=== PATIENT | female | born 1935 | race Caucasian/White ===

== ENCOUNTER 2022-12-20 13:35 | Emergency (ER) | payer OTHER ==
[2022-12-20 14:50] LABS: Absolute Lymphocytes (CBC) 1.1 K/uL (0.7-4.9); Hematocrit 40.6 % (36.0-45.0); Lymphocytes % 7.3 % (15.3-44.8); MCV 82.9 fL (80-100); MPV 7.1 fL (7.6-11.3)
[2022-12-20 15:32] LABS: Potassium 4.2 mmol/L (3.5-5.1)
--- NOTE | 2022-12-20 17:03 | RAD REPORT ---
EXAM DESCRIPTION: CT - Head C Spine Dillon Rueda - 12/20/2022 4:37 pm CLINICAL HISTORY: Head and neck injury with chest and abdominal pain status post fall. Head and neck pain . TECHNIQUE: Computed axial tomography of the head and cervical spine was obtained Computed axial tomography of the chest, abdomen and pelvis was obtained. 100 cc Isovue-300 was given intravenously coronal and sagittal reconstruction was performed. All CT scans are performed using dose optimization technique as appropriate and may include automated exposure control or mA/KV adjustment according to patient size. COMPARISON: None FINDINGS: An intracranial bleed is not seen. No significant hypodensity within the brain. The ventri cles are normal in caliber. An extra-axial fluid collection is not noted. Fluid within the sinuses is not seen A cervical fracture is not seen. No dislocation is seen. Mild anterior subluxation C3 on C4. No soft tissue swelling noted. Slight posterior subluxation C4 on C5. Marked spondylosis involves mid and dis zandra cervical spine. A mediastinal hematoma is not noted. A pleural effusion is not present. A lung contusion is not seen. The liver, spleen, pancreas, adrenals, kidneys and bladder do not demonstrate an acute traumatic inju ry Cholelithiasis. Gallbladder wall is not thickened mild anterior subluxation L4 on L5 IMPRESSION: No acute intracranial abnormality is seen A cervical fracture is not visualized. If the patient continues have symptoms to suggest intracranial /spinal cord pathology then MRI would be recommended. No acute traumatic injury involving the chest, abdomen or pelvis is seen.
--- NOTE | 2022-12-20 17:18 | ER ---
Nurse's Notes [facility] Name: Theresa River Age: 87 yrs Sex: Female : 1935 Arrival Date: 12/20/2022 Time: 13:39 Bed 7 Private MD: Diagnosis: Mechanical fall, hyponatremia, facial lesion Presentation: 12/20 13:59 Chief complaint: Patient states: Lost balance and fell back a week ago, c/o of pain to jl7 neck and right should. Coronavirus screen: Vaccine status: Patient reports receiving the 2nd dose of the covid vaccine. At this time, the client does not indicate any symptoms associated with coronavirus-19. Ebola Screen: No symptoms or risks identified at this time. Initial Sepsis Screen: Does the patient meet any 2 criteria? No. Patient's initial sepsis screen is negative. Does the patient have a suspected source of infection? No. Patient's initial sepsis screen is negative. Risk Assessment: Do you want to hurt yourself or someone else? Patient reports no desire to harm self or others. Onset of symptoms was December 13, 2022. 13:59 Method Of Arrival: Wheelchair [facility] 13:59 Acuity: JOCY 3 jl7 Triage Assessment: 14:02 General: Appears in no apparent distress. Behavior is calm, cooperative, appropriate jl7 for age. Pain: Complains of pain in neck and right shoulder. Historical: - Allergies: 14:02 Sulfa (Sulfonamide Antibiotics); jl7 - Home Meds: 14:02 None [Active]; jl7 - PMHx: 14:02 None; jl7 - PSHx: 14:02 section; jl7 - Immunization history:: Client reports receiving the 2nd dose of the Covid vaccine. - Social history:: Smoking status: Patient denies any tobacco usage or history of. Screenin:05 [facility] ED Fall Risk Assessment (Adult) History of falling in the last 3 months, ld1 including since admission Yes- single mechanical fall (1 pt). Abuse screen: Denies threats or abuse. Denies injuries from another. Nutritional screening: No deficits noted. Tuberculosis screening: No symptoms or risk factors identified. Assessment: 14:05 General: SEE TRIAGE NOTE. ld1 16:20 Reassessment: CT CONTACTED FOR SCAN. PT TO CT. bp 17:30 Reassessment: PT DC HOME. bp Vital Signs: 13:59 BP 174 / 63; Pulse 94; Resp 17; Temp 97.9; Pulse Ox 100% ; Weight 47.63 kg; Height 4 jl7 ft. 11 in. (149.86 cm); 15:30 BP 173 / 76; Pulse 85; Resp 16; Pulse Ox 100% ; bp 17:30 BP 157 / 73; Pulse 79; Resp 16; Pulse Ox 100% ; bp 13:59 Body Mass Index 21.21 (47.63 kg, 149.86 cm) 7 ED Course: 13:39 Patient arrived in ED. rg4 14:02 Triage completed. jl7 14:02 Arm band placed on right wrist. jl7 14:05 Rosey Aguirre MD is Attending Physician. sp3 14:05 Patient has correct armband on for positive identification. Bed in low position. Call ld1 light in reach. Side rails up X2. Adult w/ patient. 14:11 Sugey Vallecillo, ROSARIO is Primary Nurse. ld1 14:12 Primary Nurse role handed off by Sugey Vallecillo, ROSARIO bp 14:12 Fantasma Severino, ROSARIO is Primary Nurse. bp 14:35 Inserted saline lock: 22 gauge in right forearm, using aseptic technique. Blood bp collected. 16:39 CT Traumagram (Head C Spine CAP W Con) In Process Unspecified. EDMS 17:17 Yusuf Estes MD is Referral Physician. sp3 17:47 No provider procedures requiring assistance completed. IV discontinued, intact, bp bleeding controlled, No redness/swelling at site. Pressure dressing applied. Administered Medications: No medications were administered Medication: 14:05 VIS not applicable for this client. ld1 Outcome: 17:17 Discharge ordered by . sp3 17:48 Discharged to home via wheelchair, with family. bp 17:48 Condition: stable 17:48 Discharge instructions given to patient, family, Instructed on discharge instructions, follow up and referral plans. Demonstrated understanding of instructions, follow-up care. 17:48 Patient left the ED. bp Signatures: Dispatcher [employer] EDMS Zhang Ninoska rg4 Shani Ruiz RN RN jl7 Fantasma Severino RN RN bp Sugey Vallecillo, ROSARIO RN ld1 Rosey Aguirre MD MD sp3 Corrections: (The following items were deleted from the chart) 16:22 16:20 Reassessment: CT CONTACTED FOR SCAN bp bp
--- NOTE | 2022-12-20 17:18 | EDPHYS ---
Physician Documentation [facility] Name: Theresa River Age: 87 yrs Sex: Female : 1935 Arrival Date: 12/20/2022 Time: 13:39 Bed 7 Private MD: ED Physician Rosey Aguirre HPI: 12/20 14:24 This 87 yrs old Female presents to ER via Wheelchair with complaints of Fall Injury. sp3 14:24 87-year-old female with no documented past medical history however she does not see a sp3 physician regularly. She presents with her daughter who friend her son found patient with decreased mobility and elicited history of a mechanical ground-level fall approximately 7 days ago where she landed on her back and neck. Patient is a poor historian and cannot accurately describe the events that occurred. She also incidentally has a large lesion on her right side of her face that she has thus far refused to seek treatment for. Her daughter scheduled a dermatology appointment for which the patient canceled. She does not admit to any history of weight loss, night sweats, or any other signs or symptoms. On review of systems, patient is negative for fever, URI symptoms, chest pain, abdominal pain, nausea, vomiting, diarrhea, bleeding, melena, syncope, near syncope, LOC, or any other signs or symptoms at this time.. Historical: - Allergies: 14:02 Sulfa (Sulfonamide Antibiotics); jl7 - Home Meds: 14:02 None [Active]; jl7 - PMHx: 14:02 None; jl7 - PSHx: 14:02 section; jl7 - Immunization history:: Client reports receiving the 2nd dose of the Covid vaccine. - Social history:: Smoking status: Patient denies any tobacco usage or history of. ROS: 14:41 Constitutional: Negative for fever, chills, and weight loss, Eyes: Negative for injury, sp3 pain, redness, and discharge, ENT: Negative for injury, pain, and discharge, Cardiovascular: Negative for chest pain, palpitations, and edema, Respiratory: Negative for shortness of breath, cough, wheezing, and pleuritic chest pain, Abdomen/GI: Negative for abdominal pain, nausea, vomiting, diarrhea, and constipation, Back: Negative for injury and pain, MS/Extremity: Negative for injury and deformity, Neuro: Negative for headache, weakness, numbness, tingling, and seizure, Psych: Negative for depression, anxiety, suicide ideation, homicidal ideation, and hallucinations, Allergy/Immunology: Negative for hives, rash, and allergies, Endocrine: Negative for neck swelling, polydipsia, polyuria, polyphagia, and marked weight changes. 14:41 All other systems are negative. Exam: 14:42 Constitutional: This is a well developed, well nourished patient who is awake, alert, sp3 and in no acute distress. Eyes: Pupils equal round and reactive to light, extra-ocular motions intact. Lids and lashes normal. Conjunctiva and sclera are non-icteric and not injected. Cornea within normal limits. Periorbital areas with no swelling, redness, or edema. ENT: Nares patent. No nasal discharge, no septal abnormalities noted. External auditory canals are clear. Oropharynx with no redness, swelling, or masses, exudates, or evidence of obstruction, uvula midline. Mucous membranes moist. Neck: Trachea midline, no thyromegaly or masses palpated, and no cervical lymphadenopathy. Supple, full range of motion without nuchal rigidity, or vertebral point tenderness. No Meningismus. Chest/axilla: Normal chest wall appearance and motion. Nontender with no deformity. No lesions are appreciated. Cardiovascular: Regular rate and rhythm with a normal S1 and S2. No gallops, murmurs, or rubs. Normal PMI, no JVD. No pulse deficits. Respiratory: Lungs have equal breath sounds bilaterally, clear to auscultation and percussion. No rales, rhonchi or wheezes noted. No increased work of breathing, no retractions or nasal flaring. Abdomen/GI: Soft, non-tender, with normal bowel sounds. No distension or tympany. No guarding or rebound. No evidence of tenderness throughout. Skin: Warm, dry with normal turgor. Normal color with no rashes, no lesions, and no evidence of cellulitis. MS/ Extremity: Pulses equal, no cyanosis. Neurovascular intact. Full, normal range of motion. Neuro: Awake and alert, GCS 15, oriented to person, place, time, and situation. Cranial nerves II-XII grossly intact. Motor strength 5/5 in all extremities. Sensory grossly intact. Cerebellar exam normal. Normal gait. Psych: Awake, alert, with orientation to person, place and time. Behavior, mood, and affect are within normal limits. 14:42 Head/face: Patient has 2 cm x 1 cm lesion on the right side of her face intraorbital with irregular boundaries, purple and black in color. It has been there for approximately 3 months and is growing in size. No local lymphadenopathy noted.. 14:43 Musculoskeletal/extremity: Patient has positive pain to palpation along the cervical sp3 vertebrae and bilateral scapular region. Limited range of motion on her back in general. Distal upper and lower extremity neurovascular exam is normal.. Vital Signs: 13:59 BP 174 / 63; Pulse 94; Resp 17; Temp 97.9; Pulse Ox 100% ; Weight 47.63 kg; Height 4 jl7 ft. 11 in. (149.86 cm); 15:30 BP 173 / 76; Pulse 85; Resp 16; Pulse Ox 100% ; bp 17:30 BP 157 / 73; Pulse 79; Resp 16; Pulse Ox 100% ; bp 13:59 Body Mass Index 21.21 (47.63 kg, 149.86 cm) jl7 MDM: 14:21 Patient medically screened. sp3 14:44 Data reviewed: vital signs, nurses notes. ED course: 87-year-old female with 7-day sp3 history of mechanical ground-level fall who presents for trauma evaluation. We will obtain vazquez scan CT scan of the head, C-spine, chest abdomen and pelvis. Also routine laboratory values. I am not highly concerned for significant traumatic injury other than possible soft tissue injury of the neck. I am more concerned about the lesion on her face for which I have significantly counseled patient on the need for follow-up and the fact that it could represent a cancerous lesion. Both patient and daughter acknowledge and state that they will seek appropriate follow-up. Vital signs are otherwise normal and we will continue evaluation from a traumatic standpoint.. 17:14 ED course: CT scan demonstrates no acute abnormality. Vital signs are normal. Lab work sp3 demonstrates sodium of 126 which I do not believe is acute. I have instructed patient to not limit her salt that she has been doing at home and follow-up with her primary care physician. I also stressed that she needs to follow-up with dermatology to biopsy the lesion on her face. OTC meds for her pain given her age and ice as needed as well. I discussed this with her family as well who acknowledge all of this as well as need for follow-up. Will discharge home safely at this time.. 12/20 14:20 Order name: Basic Metabolic Panel; Complete Time: 15:56 sp3 12/20 14:20 Order name: CBC with Diff; Complete Time: 15:56 sp3 12/20 14:20 Order name: CT Traumagram (Head C Spine CAP W Con); Complete Time: 17:08 sp3 12/20 14:20 Order name: Labs collected and sent; Complete Time: 14:35 sp3 Administered Medications: No medications were administered Disposition Summary: 12/20/22 17:17 Discharge Ordered Location: Home sp3 Condition: Stable sp3 Diagnosis - Mechanical fall, hyponatremia, facial lesion sp3 Followup: sp3 - With: Private Physician - When: Upon discharge from the Emergency Department - Reason: Recheck today's complaints Followup: sp3 - With: Yusuf Estes MD - When: Upon discharge from the Emergency Department - Reason: Further diagnostic work-up Discharge Instructions: - Discharge Summary Sheet sp3 - Fall Prevention in the Home, Adult sp3 - Hyponatremia sp3 Forms: - Medication Reconciliation Form sp3 - Thank You Letter sp3 - Antibiotic Education sp3 - Prescription Opioid Use sp3 Signatures: Dispatcher [employer] Shani Clancy RN RN jl7 Rosey Aguirre MD MD sp3
[2022-12-20 18:03] VITALS: TEMP 97.9; O2SAT 100
[2022-12-20 18:05] VITALS: BP 157/73
== END 2022-12-20 17:48 | disposition home or self-care (01) ==
LOC: ER 13:35
DX: M54.2 Cervicalgia (principal); E87.1 Hypo-osmolality and hyponatremia; L98.9 Disorder of the skin and subcutaneous tissue, unspecified; W18.30XA Fall on same level, unspecified, initial encounter; Z88.2 Allergy status to sulfonamides
CPT/HCPCS: 85025; 80048; 36415; 70450; 72125; 71260; 74177; 99283; Q9967